=== PATIENT | female | born 1970 | race Caucasian/White ===

== ENCOUNTER → 2021-01-30 12:01 | Outpatient (CLI) | payer OTHER, MEDICAID, SELFPAY ==
--- NOTE | 2021-01-30 12:07 | DI.US.S_ITS ---
PROCEDURE: US PERIPH VENOUS LOW EXTREM LT INDICATIONS: HISTORY DVT; RE-EVALUATE TECHNIQUE: Real-time imaging, as well as color and pulse Doppler interrogation, were performed of the lower extremity deep veins from the inguinal ligament to the popliteal fossa. COMPARISON: None. FINDINGS: The common femoral, femoral and popliteal veins are normally compressible, and free of intraluminal thrombus. Color and pulse Doppler demonstrate normal phasic intraluminal flow. There is normal augmentation response to distal compression maneuver. IMPRESSION: Negative for deep venous thrombosis. Dictated by: Drew Stein M.D. on 01/30/2021 at 11:52 Approved by: Drew Stein M.D. on 01/30/2021 at 11:52
== END ==
PROVIDERS: PCP Nurse Practitioner Family; Referring Provider Nurse Practitioner Family; Visit Provider Nurse Practitioner Family
DX: I82.592 Chronic embolism and thrombosis of other specified deep vein of left lower extremity (principal)
CPT/HCPCS: 93971

== ENCOUNTER → 2021-03-11 10:37 | Outpatient (CLI) | payer OTHER, MEDICAID, SELFPAY ==
--- NOTE | 2021-03-11 10:39 | DI.US.S_ITS ---
PROCEDURE: US PELVIC COMPLETE INDICATIONS: POSTMENOPAUSAL BLEEDING TECHNIQUE: Real-time scanning was performed of the pelvic organs, with image documentation. Additional endovaginal scanning was necessary due to incomplete visualization of the adnexal and endometrial structures by transabdominal scanning. COMPARISON: None. FINDINGS: Uterus: Uterus is anteverted and normal in size at 4.1 x 2.9 x 7.5 cm. The endometrium measures 2.0 mm in combined thickness. There is a small right posterior intramural 1.1 cm maximal dimension fibroid and also a midline anterior intramural 9 mm maximal dimension thyroid. Ovaries: Not well seen due to bowel gas. Other: No pathologic free abdominal or pelvic fluid. IMPRESSION: 2 small intramural uterine fibroids, normal endometrial lining thickness. Nonvisualization of the ovaries due to bowel gas. Dictated by: Ladarius Esposito M.D. on 03/11/2021 at 12:13 Approved by: Ladarius Esposito M.D. on 03/11/2021 at 12:15
== END ==
PROVIDERS: PCP Family Medicine; Referring Provider Family Medicine; Visit Provider Family Medicine
DX: N95.0 Postmenopausal bleeding (principal); D25.1 Intramural leiomyoma of uterus
CPT/HCPCS: 76830; 76856

== ENCOUNTER → 2021-03-14 12:42 | Outpatient (CLI) | payer OTHER, MEDICAID, SELFPAY ==
[2021-03-14 13:30] LABS: Prothrombin Time 63.5 SECONDS (10.1-12.7)
[2021-03-14 13:44] LABS: INR 5.4 (0.9-1.3)
[2021-03-14 14:20] LABS: Free T3, Triiodothyronine Free 4.66 pg/mL (2.77-5.27); Free T4, Direct Thyroxine 1.52 ng/dL (0.78-2.19)
[2021-03-14 14:34] LABS: Thyroid Stimulating Hormone 1.33 uIU/mL (0.47-4.68)
== END ==
PROVIDERS: Registered Nurse; PCP Family Medicine; Referring Provider Family Medicine; Visit Provider Family Medicine
DX: Z86.39 Personal history of other endocrine, nutritional and metabolic disease (principal); Z86.718 Personal history of other venous thrombosis and embolism
CPT/HCPCS: 36415; 84439; 84443; 84481; 85610

== ENCOUNTER 2021-03-16 15:53 | Emergency (ER) | payer OTHER, MEDICAID, SELFPAY ==
[2021-03-16 16:00] VITALS: BP 144/89; PULSE 61; RESP 20; TEMP 36.3; O2SAT 98
--- NOTE | 2021-03-16 16:19 | ED_ITS ---
HPI - Recheck/Abnormal Lab/Rx General Chief Complaint: Recheck/Abnormal Lab/Rx Stated Complaint: needs INR checked Time Seen by Provider: 03/16/21 16:02 Source: patient Mode of arrival: Ambulatory Limitations: no limitations History of Present Illness HPI narrative: 50-year-old female smoker with history of lower extremity DVT after complex back surgery presents for a check of her INR. She has had no recent medication changes or dietary change but a routine INR check a few days ago was elevated over 5 and she was told to hold her dose yesterday and today and recheck an INR. She denies any headache or blurred vision, bleeding in her stool or urine and has no complications. She is otherwise well and free of complaint. MD complaint: abnormal lab Returns today for: called because of abnormal lab/test Symptoms since prior visit: no new symptoms Related Data Home Medications Medication Instructions Recorded Confirmed docusate sodium 250 mg capsule 250 mg PO DAILY 03/05/21 03/14/21 duloxetine 60 mg capsule,delayed 60 mg PO DAILY 03/05/21 03/14/21 release fluticasone propionate 50 1 spray INTRANASAL DAILY 03/05/21 03/14/21 mcg/actuation nasal spray,suspension furosemide 20 mg tablet 20 mg PO DAILY 03/05/21 03/14/21 sertraline 100 mg tablet 100 mg PO DAILY 03/05/21 03/14/21 warfarin 3 mg tablet 3 mg PO DAILY 03/05/21 03/14/21 Previous Rx's Medication Instructions Recorded metoprolol succinate 100 mg 100 mg PO DAILY #90 tab 03/06/21 tablet,extended release 24 hr trazodone 50 mg tablet 50 mg PO BEDTIME PRN #90 tab 03/11/21 hydrocodone 10 mg-acetaminophen 1 tab PO Q4-6H PRN #150 tab 03/15/21 325 mg tablet Allergies Allergy/AdvReac Type Severity Reaction Status Date / Time gabapentin [From NEURONTIN] Allergy Severe resp Unverified 03/05/21 11:45 distress meperidine [From DEMEROL] Allergy Severe resp Unverified 03/05/21 11:45 distress morphine [MORPHINE] Allergy Severe resp Unverified 03/05/21 11:45 distress adhesive [ADHESIVE] Allergy Intermediate rash Unverified 03/05/21 11:45 rivaroxaban [From XARELTO] Allergy Unknown arthritis, Unverified 03/05/21 11:45 bleeding in urine Review of Systems Constitutional Constitutional: Denies chills, Denies fatigue, Denies fever(s), Denies frequent falls, Denies lethargy and Denies weakness Eyes Eyes: Denies change in vision, Denies eye discharge, Denies irritation and Denies loss of vision ENT Ears, Nose, Mouth, and Throat: Denies change in voice, Denies dizziness, Denies neck pain, Denies sore throat and Denies throat swelling Cardiovascular Cardiovascular: Denies chest pain, Denies irregular heart rhythm, Denies lightheadedness, Denies palpitations, Denies dyspnea, Denies dyspnea on exertion and Denies orthopnea Respiratory Respiratory: Denies cough, Denies dyspnea, Denies dyspnea on exertion and Denies wheezing Gastrointestinal Gastrointestinal: Denies abdominal pain, Denies change in bowel habits, Denies diarrhea, Denies nausea and Denies vomiting Musculoskeletal Musculoskeletal: Denies neck pain and Denies numbness Integumentary/Breasts Skin/Breast: Denies pruritus, Denies erythema, Denies rash and Denies wounds Neurologic Neurologic: Denies behavioral changes, Denies confusion, Denies dizziness, Denies frequent falls, Denies loss of vision, Denies numbness and Denies weakness Psychiatric Psychiatric: Denies anxiety, Denies behavioral changes, Denies confusion, Denies depression, Denies homicidal ideation and Denies suicidal ideation Endocrine Endocrine: Denies fatigue, Denies flushing and Denies palpitations Hematologic/Lymphatic Hematologic/Lymphatic: Denies easy bruising Allergic/Immunologic Allergic/Immunologic: Denies urticaria, Denies throat swelling and Denies wheezing Patient History Medical History Back pain with history of spinal surgery History of colon polyps HTN (hypertension) Inguinal hernia recurrent unilateral Nocturia more than twice per night Postmenopausal bleeding Surgical History H/O hernia repair H/O knee surgery Hx of section Family History Father Hypertension Mother Diabetes mellitus Congestive heart failure Social History substance use type: marijuana Smoking Status: Current every day smoker Exam Narrative Exam Narrative: GEN: AOx3 and in mild distress EYES: Pupils are equal, round, and reactive to light and accommodation. Extraoccular muscles are intact bilaterally. There is no subconjunctival hemorrhage or exudate. CHEST: Lungs are clear to auscultation bilaterally and free of wheezes, rales, or rhonchi. Heart rate is regular rhythm, there are no murmurs, clicks, rubs, or gallops. There is no chest wall tenderness. ABD: Abdomen is soft and nontender. There is no guarding or rebound. Bowel sounds are normal in all 4 quadrants. There is no mass or organomegaly. EXT: Full painless ROM of all extremities with no loss of sensation or strength. SKIN: Warm, pink, and dry. No erythema or rash Initial Vital Signs Initial Vital Signs: Vital Signs Temperature 97.4 F L 03/16/21 16:00 Pulse Rate 61 03/16/21 16:00 Respiratory Rate 20 03/16/21 16:00 Blood Pressure 144/89 H 03/16/21 16:00 Pulse Oximetry 98 03/16/21 16:00 Course Orders Ordered: ED Orders 03/16/21 16:09 Prothrombin Time INR Stat Vital Signs Vital signs: Vital Signs - 8 hr 03/16/21 16:00 Temperature 97.4 F L Pulse Rate 61 Respiratory Rate 20 Blood Pressure 144/89 H Pulse Oximetry 98 [facility] - Recheck/Abnormal Lab/Rx Lab Data Labs: Lab Results 03/16/21 Range/Units 16:09 PT 51.0 H D (10.1-12.7) SECONDS INR 4.3 H (0.9-1.3) [facility] Narrative Medical decision making narrative: Patient with slightly elevated INR and no symptoms to suggest bleeding. Has trended down from above 5 to today's level 4.3. Discussed with patient to hold Coumadin today and tomorrow. She has follow-up arranged on Wednesday to establish with the [facility] and her new PCP. Return precautions given and questions answered to her apparent satisfaction Discharge Plan Departure Patient Disposition: Home Clinical Impression: Supratherapeutic INR Activity Restrictions/Additional Instructions: *You have been diagnosed with [slightly elevated INR, today your level is 4.3] *What to do: *Please hold your Coumadin today and tomorrow and arrange to get a repeat INR 3 your primary care provider *Return to Emergency Department if you should have any new, worsening or concerning symptoms, such as [fever greater than 101 F, shaking chills, blood in your stool, urine worsening pain, persistent vomiting or other bothersome symptoms] Prescriptions: No Action metoprolol succinate 100 mg tablet extended release 24 hr 100 mg PO DAILY Qty: 90 RF: 3 trazodone 50 mg tablet 50 mg PO BEDTIME PRN (Reason: insomnia) Qty: 90 RF: 1 hydrocodone-acetaminophen 10-325 mg tablet 1 tab PO Q4-6H PRN (Reason: pain) Qty: 150 RF: 0 warfarin 3 mg tablet 3 mg PO DAILY RF: 0 sertraline 100 mg tablet 100 mg PO DAILY RF: 0 duloxetine 60 mg capsule,delayed release(DR/EC) 60 mg PO DAILY RF: 0 fluticasone propionate 50 mcg/actuation spray,suspension 1 spray intranasal DAILY RF: 0 furosemide 20 mg tablet 20 mg PO DAILY RF: 0 docusate sodium [Stool Softener] 250 mg capsule 250 mg PO DAILY RF: 0 Referrals: Heriberto Mabry DO [Primary Care Provider] -
[2021-03-16 16:22] LABS: INR 4.3 (0.9-1.3)
== END 2021-03-16 16:30 | disposition home or self-care (01) ==
PROVIDERS: Emergency Provider Emergency Medicine; PCP Family Medicine
DX: R79.1 Abnormal coagulation profile (principal)
CPT/HCPCS: 85610; 99281; 99282

== ENCOUNTER → 2021-11-11 10:35 | Outpatient (CLI) | payer OTHER, MEDICAID, SELFPAY ==
[2021-11-11 12:30] LABS: INR 1.5 (0.9-1.3); Prothrombin Time 16.5 SECONDS (10.1-12.7)
== END ==
PROVIDERS: PCP Family Medicine; Referring Provider Family Medicine; Visit Provider Family Medicine
DX: Z79.01 Long term (current) use of anticoagulants (principal)
CPT/HCPCS: 36415; 85610

== ENCOUNTER → 2022-06-02 09:24 | Outpatient (CLI) | payer OTHER, MEDICAID, SELFPAY ==
[2022-06-02 10:24] LABS: INR 1.6 (0.9-1.3); Prothrombin Time 18.7 SECONDS (10.1-12.7)
== END ==
PROVIDERS: PCP Family Medicine; Referring Provider Family Medicine; Visit Provider Family Medicine
DX: Z79.01 Long term (current) use of anticoagulants (principal); Z86.718 Personal history of other venous thrombosis and embolism
CPT/HCPCS: 36415; 85610

== ENCOUNTER → 2022-06-25 10:18 | Outpatient (CLI) | payer OTHER, MEDICAID, SELFPAY ==
[2022-06-25 12:24] LABS: INR 1.6 (0.9-1.3); Prothrombin Time 18.1 SECONDS (10.1-12.7)
== END ==
PROVIDERS: PCP Family Medicine; Referring Provider Family Medicine; Visit Provider Family Medicine
DX: Z79.01 Long term (current) use of anticoagulants (principal); Z86.718 Personal history of other venous thrombosis and embolism
CPT/HCPCS: 36415; 85610

== ENCOUNTER → 2022-07-10 09:59 | Outpatient (CLI) | payer OTHER, MEDICAID, SELFPAY ==
[2022-07-10 12:06] LABS: INR 1.6 (0.9-1.3); Prothrombin Time 18.1 SECONDS (10.1-12.7)
== END ==
PROVIDERS: PCP Family Medicine; Referring Provider Family Medicine; Visit Provider Family Medicine
DX: Z79.01 Long term (current) use of anticoagulants (principal); Z86.718 Personal history of other venous thrombosis and embolism
CPT/HCPCS: 36415; 85610

== ENCOUNTER → 2022-08-04 09:03 | Outpatient (CLI) | payer OTHER, MEDICAID, SELFPAY ==
[2022-08-04 11:08] LABS: INR 2.3 (0.9-1.3); Prothrombin Time 26.2 SECONDS (10.1-12.7)
== END ==
PROVIDERS: PCP Family Medicine; Referring Provider Family Medicine; Visit Provider Family Medicine
DX: Z79.01 Long term (current) use of anticoagulants (principal); Z86.718 Personal history of other venous thrombosis and embolism
CPT/HCPCS: 36415; 85610

== ENCOUNTER → 2022-09-01 15:03 | Outpatient (CLI) | payer OTHER, MEDICAID, SELFPAY ==
[2022-09-01 15:37] LABS: INR 1.7 (0.9-1.3); Prothrombin Time 19.6 SECONDS (10.1-12.7)
== END ==
PROVIDERS: PCP Family Medicine; Referring Provider Family Medicine; Visit Provider Family Medicine
DX: Z79.01 Long term (current) use of anticoagulants (principal); I82.409 Acute embolism and thrombosis of unspecified deep veins of unspecified lower extremity
CPT/HCPCS: 36415; 85610

== ENCOUNTER → 2022-10-09 11:42 | Outpatient (CLI) | payer OTHER, MEDICAID, SELFPAY ==
[2022-10-09 13:02] LABS: INR 1.7 (0.9-1.3)
== END ==
PROVIDERS: PCP Family Medicine; Referring Provider Family Medicine; Visit Provider Family Medicine
DX: Z79.01 Long term (current) use of anticoagulants (principal)
CPT/HCPCS: 36415; 85610

== ENCOUNTER → 2022-10-13 11:44 | Outpatient (CLI) | payer OTHER, MEDICAID, SELFPAY ==
--- NOTE | 2022-10-13 11:44 | DI.RAD.S_ITS ---
PROCEDURE: XR KNEE RT 3V INDICATIONS: pain TECHNIQUE: 3 views of the knee were acquired. COMPARISON: [facility], CR, XR KNEE LT 3V, 10/13/2022, 11:47. FINDINGS: Bones: No fractures or dislocations. Moderate to severe tricompartmental osteoarthritis is seen most notably in medial femoral tibial compartment. No patellar subluxation. No suspicious bony lesions. Soft tissues: No joint effusion. No suspicious soft tissue calcifications. IMPRESSION: Moderate to severe tricompartmental osteoarthritis most notably in medial femoral tibial compartment. No fracture or dislocation. No significant joint effusion. Dictated by: Raffy Salas M.D. on 10/13/2022 at 12:44 Approved by: Raffy Salas M.D. on 10/13/2022 at 12:46
--- NOTE | 2022-10-13 11:44 | DI.RAD.S_ITS ---
PROCEDURE: XR KNEE LT 3V INDICATIONS: pain TECHNIQUE: 3 views of the knee were acquired. COMPARISON: None. FINDINGS: Bones: No fractures or dislocations. Moderate to severe tricompartmental osteoarthritis most notably in medial femoral tibial compartment. No suspicious bony lesions. Soft tissues: No joint effusion. No suspicious soft tissue calcifications. IMPRESSION: Moderate to severe tricompartmental osteoarthritis. No fracture or dislocation. No significant joint effusion. Dictated by: Raffy Salas M.D. on 10/13/2022 at 12:44 Approved by: Raffy Salas M.D. on 10/13/2022 at 12:44
== END ==
PROVIDERS: PCP Family Medicine; Referring Provider Family Medicine; Visit Provider Family Medicine
DX: M17.0 Bilateral primary osteoarthritis of knee (principal); M25.562 Pain in left knee; M25.561 Pain in right knee; G89.29 Other chronic pain
CPT/HCPCS: 73562

== ENCOUNTER → 2023-01-03 10:33 | Outpatient (CLI) | payer OTHER, MEDICAID, SELFPAY ==
--- NOTE | 2023-01-03 10:36 | DI.MRI.S_ITS ---
PROCEDURE: MR SHOULDER LT WO CON INDICATIONS: loss of fxn, pain TECHNIQUE: Noncontrast oblique coronal T2 fast spin echo with fat saturation, oblique sagittal T1 spin echo and T2 fast spin echo with fat saturation, axial T1 spin echo and T2 fast spin echo with fat saturation through the shoulder. COMPARISON: None. FINDINGS: Image quality: Excellent. Rotator cuff: Mild T2 signal elevation diffusely throughout the supraspinatus and infraspinatus tendons at the humeral insertion sites extending to the musculotendinous junction, indicating tendinopathy. Superimposed moderate grade intrasubstance and articular surface tearing of the posterior supraspinatus and anterior infraspinatus tendons, at the humeral insertion sites extending to the musculotendinous junction. There is a high-grade pinhole tear of the mid subscapularis tendon at the humeral insertion site. Teres minor is intact. No rotator cuff atrophy. Bones and bursae: No bone marrow contusions or fractures. Subchondral cyst within the posterior humeral head measuring 15 mm with moderate surrounding ill-defined T2 signal elevation, consistent with degenerative sequelae. Moderate acromioclavicular joint degeneration. The acromion demonstrates conventional anatomy, without an os acromiale. No pathologic subacromial-subdeltoid or subcoracoid bursal fluid is present. Capsule and soft tissues: Labrum demonstrates irregular high T2 signal intensity posteriorly with focal undercutting in the mid posterior labrum. The long head of the biceps tendon demonstrates normal location and morphology. The rotator interval appears normal, without fibrosis. The coracohumeral ligament is normal in thickness. IMPRESSION: 1. Supraspinatus and infraspinatus tendinopathy. 2. High-grade pinhole tear of the subscapularis tendon. 3. Moderate grade tearing of the supraspinatus and infraspinatus tendon. 4. Acromioclavicular joint osteoarthritis. 5. Glenoid labral tearing. 6. Degenerative subchondral cyst within the humeral head. Dictated by: Romel Garrett M.D. on 01/04/2023 at 9:00 Approved by: Romel Garrett M.D. on 01/04/2023 at 9:03
== END ==
PROVIDERS: PCP Family Medicine; Referring Provider Family Medicine; Visit Provider Family Medicine
DX: S46.012A Strain of muscle(s) and tendon(s) of the rotator cuff of left shoulder, initial encounter (principal); S43.492A Other sprain of left shoulder joint, initial encounter; M19.012 Primary osteoarthritis, left shoulder; M25.512 Pain in left shoulder; G89.11 Acute pain due to trauma; R29.898 Other symptoms and signs involving the musculoskeletal system
CPT/HCPCS: 73221

== ENCOUNTER → 2023-02-05 15:26 | Outpatient (CLI) | payer OTHER, MEDICAID, SELFPAY ==
[2023-02-05 19:11] LABS: INR 1.5 (0.9-1.3); Prothrombin Time 16.7 SECONDS (10.1-12.7)
== END ==
PROVIDERS: PCP Family Medicine; Referring Provider Family Medicine; Visit Provider Family Medicine
DX: Z79.01 Long term (current) use of anticoagulants (principal); Z86.718 Personal history of other venous thrombosis and embolism
CPT/HCPCS: 36415; 85610

== ENCOUNTER → 2023-02-19 11:39 | Outpatient (CLI) | payer OTHER, MEDICAID, SELFPAY ==
[2023-02-19 12:40] LABS: INR 2.3 (0.9-1.3); Prothrombin Time 27.1 SECONDS (10.1-12.7)
== END ==
PROVIDERS: PCP Family Medicine; Referring Provider Family Medicine; Visit Provider Family Medicine
DX: Z51.81 Encounter for therapeutic drug level monitoring (principal); Z79.01 Long term (current) use of anticoagulants; Z86.718 Personal history of other venous thrombosis and embolism
CPT/HCPCS: 36415; 85610

== ENCOUNTER → 2023-06-04 12:18 | Outpatient (CLI) | payer OTHER, MEDICAID, SELFPAY ==
[2023-06-04 13:35] LABS: Add Manual Diff / Slide Review NO; Basophils Absolute Auto 100 /uL (0-100); Basophils Percent Auto 1.4 % (0-2); Eosinophils Absolute Auto 300 /uL (0-450); Eosinophils Percent Auto 3.1 % (2-4); Hematocrit 44.7 % (36-46); Hemoglobin 15.2 g/dL (12.0-16.0); Lymphocytes Absolute Auto 2300 /uL (1100-4500); Lymphocytes Percent Auto 24.9 % (25-40); Mean Corpuscular HGB Conc 34.1 % (30-36); Mean Corpuscular Hemoglobin 29.5 PG (26-34); Mean Corpuscular Volume 86.3 fL (80-100); Monocytes Absolute Auto 600 /uL (0-900); Monocytes Percent Auto 6.1 % (3-14); Neutrophils Absolute Auto 6000 /uL (1500-7000); Neutrophils Percent Auto 64.5 % (50-75); Platelet Count 301 X10^3/uL (150-400); Red Blood Cell Count 5.17 X10^6/uL (4.0-5.2); Red Cell Distribution Width 13.7 % (11.6-14.8); White Blood Cell Count 9.3 X10^3/uL (4.5-11.0)
[2023-06-04 13:55] LABS: Alanine Aminotransferase 25 IU/L (<35); Albumin 4.2 g/dL (3.5-5.0); Albumin Globulin Ratio 1.6 (1.0-2.8); Alkaline Phosphatase 104 U/L (38-126); Aspartate Aminotransferase 23 IU/L (14-36); BUN Creatinine Ratio 15.2 (6-22); Bilirubin Total 0.4 mg/dL (0.2-1.3); Blood Urea Nitrogen 12 mg/dL (7-17); Calcium 9.7 mg/dL (8.4-10.2); Carbon Dioxide 25 mmol/L (22-32); Chloride 106 mmol/L (98-107); Cholesterol 199 mg/dL (140-199); Estimated Glomerular Filt Rate > 60 mL/min (>60); Globulin 2.6 g/dL (1.7-4.1); Glucose 133 mg/dL (70-100); HDL Cholesterol 49 mg/dL (40-60); HEMOLYSIS < 15 (0-50); LDL Cholesterol Calculated 98 mg/dL (<100); Potassium 4.3 mmol/L (3.4-5.1); Sodium 138 mmol/L (137-145); Total Protein 6.8 g/dL (6.3-8.2); Triglycerides 259 mg/dL (35-150)
[2023-06-04 13:56] LABS: INR 1.7 (0.9-1.3); Prothrombin Time 19.3 SECONDS (10.1-12.7)
[2023-06-04 14:26] LABS: TSH w/ Reflex to FT4 0.83 uIU/mL (0.47-4.68)
== END ==
PROVIDERS: PCP Family Medicine; Referring Provider Family Medicine; Visit Provider Family Medicine
DX: Z13.220 Encounter for screening for lipoid disorders (principal); Z86.39 Personal history of other endocrine, nutritional and metabolic disease; I82.409 Acute embolism and thrombosis of unspecified deep veins of unspecified lower extremity
CPT/HCPCS: 36415; 80053; 80061; 84443; 85025; 85610

== ENCOUNTER → 2023-06-11 11:05 | Outpatient (CLI) | payer OTHER, MEDICAID, SELFPAY ==
[2023-06-11 12:20] LABS: INR 1.9 (0.9-1.3); Prothrombin Time 21.5 SECONDS (10.1-12.7)
== END ==
PROVIDERS: PCP Family Medicine; Referring Provider Family Medicine; Visit Provider Family Medicine
DX: Z51.81 Encounter for therapeutic drug level monitoring (principal); Z79.01 Long term (current) use of anticoagulants; Z86.718 Personal history of other venous thrombosis and embolism
CPT/HCPCS: 36415; 85610

== ENCOUNTER → 2023-07-27 12:33 | Outpatient (CLI) | payer OTHER, MEDICAID, SELFPAY ==
[2023-07-27 13:33] LABS: Hemoglobin A1C% w Est Avg Glu 5.7 % (4.0-6.0)
[2023-07-27 14:41] LABS: INR 1.6 (0.9-1.3); Prothrombin Time 18.5 SECONDS (10.1-12.7)
== END ==
PROVIDERS: PCP Family Medicine; Referring Provider Family Medicine; Visit Provider Family Medicine
DX: R73.01 Impaired fasting glucose (principal); I82.409 Acute embolism and thrombosis of unspecified deep veins of unspecified lower extremity
CPT/HCPCS: 36415; 83036; 85610

== ENCOUNTER → 2023-12-15 12:45 | Outpatient (CLI) | payer OTHER, MEDICAID, SELFPAY ==
[2023-12-15 13:13] LABS: Add Manual Diff / Slide Review NO; Basophils Absolute Auto 100 /uL (0-100); Eosinophils Absolute Auto 300 /uL (0-450); Eosinophils Percent Auto 3.2 % (2-4); Hematocrit 41.5 % (36-46); Hemoglobin 13.8 g/dL (12.0-16.0); Lymphocytes Absolute Auto 2300 /uL (1100-4500); Lymphocytes Percent Auto 27.2 % (25-40); Mean Corpuscular HGB Conc 33.2 % (30-36); Mean Corpuscular Hemoglobin 28.7 PG (26-34); Mean Corpuscular Volume 86.6 fL (80-100); Monocytes Absolute Auto 600 /uL (0-900); Neutrophils Absolute Auto 5300 /uL (1500-7000); Neutrophils Percent Auto 61.6 % (50-75); Platelet Count 316 X10^3/uL (150-400); Red Blood Cell Count 4.79 X10^6/uL (4.0-5.2); Red Cell Distribution Width 14.2 % (11.6-14.8); White Blood Cell Count 8.6 X10^3/uL (4.5-11.0)
[2023-12-15 13:32] LABS: Alanine Aminotransferase 23 IU/L (<35); Albumin 3.8 g/dL (3.5-5.0); Albumin Globulin Ratio 1.4 (1.0-2.8); Alkaline Phosphatase 91 U/L (38-126); Aspartate Aminotransferase 25 IU/L (14-36); BUN Creatinine Ratio 17.8 (6-22); Bilirubin Total 0.5 mg/dL (0.2-1.3); Blood Urea Nitrogen 13 mg/dL (7-17); Calcium 9.3 mg/dL (8.4-10.2); Carbon Dioxide 28 mmol/L (22-32); Chloride 110 mmol/L (98-107); Cholesterol 185 mg/dL (140-199); Estimated Glomerular Filt Rate > 60 mL/min (>60); Globulin 2.8 g/dL (1.7-4.1); Glucose 133 mg/dL (70-100); HDL Cholesterol 45 mg/dL (40-60); HEMOLYSIS < 15 (0-50); LDL Cholesterol Calculated 112 mg/dL (<100); Potassium 4.3 mmol/L (3.4-5.1); Sodium 141 mmol/L (137-145); Total Protein 6.6 g/dL (6.3-8.2); Triglycerides 141 mg/dL (35-150)
[2023-12-15 13:41] LABS: Rheumatoid Factor < 8.6 IU/mL (<12.0)
[2023-12-15 13:47] LABS: Hemoglobin A1C% w Est Avg Glu 5.7 % (4.0-6.0)
[2023-12-15 13:58] LABS: TSH w/ Reflex to FT4 1.95 uIU/mL (0.47-4.68)
[2023-12-18 22:07] LABS: CCP Antibodies IgG/IgA 6 units (0-19)
== END ==
LOC: LAB 12:46
PROVIDERS: PCP Family Medicine; Referring Provider Family Medicine; Visit Provider Family Medicine
DX: I10 Essential (primary) hypertension (principal); Z68.42 Body mass index [BMI] 45.0-49.9, adult; R73.01 Impaired fasting glucose; M79.641 Pain in right hand; M79.642 Pain in left hand; M79.89 Other specified soft tissue disorders
CPT/HCPCS: 36415; 80053; 80061; 83036; 84443; 85025; 86200; 86430

== ENCOUNTER → 2024-02-24 12:11 | Outpatient (CLI) | payer OTHER, MEDICAID, SELFPAY ==
[2024-02-24 13:07] LABS: INR 1.9 (0.9-1.3); Prothrombin Time 22.5 SECONDS (9.4-12.5)
== END ==
PROVIDERS: PCP Family Medicine; Referring Provider Family Medicine; Visit Provider Family Medicine
DX: Z51.81 Encounter for therapeutic drug level monitoring (principal); Z79.01 Long term (current) use of anticoagulants; Z86.718 Personal history of other venous thrombosis and embolism
CPT/HCPCS: 36415; 85610

== ENCOUNTER 2024-03-21 20:06 | Emergency (ER) | payer OTHER, MEDICAID, SELFPAY ==
[2024-03-21] VITALS (11 sets, daily range): BP systolic 177–211; BP diastolic 86–109; PULSE 48–59; RESP 14–29; TEMP 36.8; O2SAT 96–99; BMI 44.8
--- NOTE | 2024-03-21 22:03 | ED_ITS ---
HPI - General Adult General Chief complaint: Hypertension Stated complaint: high blood pressure Time Seen by Provider: 03/21/24 20:31 Source: patient Mode of arrival: Ambulatory History of Present Illness HPI narrative: 53-year-old woman with a history of chronic back pain post spinal fusion, hypothyroidism post radiation, prior DVT currently anticoagulated, prior stroke, anxiety, depression, PTSD and a prior diagnosis of hypertension. Patient was seen by her primary care doctor today for dry needling for chronic neck pain. Was noted to have elevated blood pressures that time had come down slightly. Plan was to observe and she has not upcoming appointment to discuss in the near future. Initial presumption was that the elevated blood pressure was related to pain. Patient went home but when blood pressures remained elevated her provider suggested that she come to the ER for further evaluation. She is not having headache, chest pain, dyspnea. The dry needling did seem to help with the neck pain in the bit of a headache she had earlier. Blood pressures are still elevated at this time. She has not complaining of palpitations. Related Data Previous Rx's Medication Instructions Recorded Disabled Parking Permit #1 ea 06/10/22 alprazolam 1 mg tablet 1 mg PO .COMPLEX PRN anxiety #2 12/10/22 tabs losartan 50 mg tablet See Rx Instructions .Route 01/06/23 .COMPLEX #180 tabs psyllium husk (with sugar) 3.4 2 tsp PO ONCE #1,368 grams 08/04/23 gram/12 gram oral powder (Metamucil (with sugar)) trazodone 150 mg tablet 150 mg PO ONCE PM PRN for insomnia 10/27/23 #90 tabs fluticasone propionate 50 1 spray intranasal DAILY #16 grams 11/04/23 mcg/actuation nasal spray,suspension warfarin 3 mg tablet See Rx Instructions PO .COMPLEX 11/25/23 #420 tabs varenicline 0.5 mg (11)-1 mg (42) See Rx Instructions PO PER PKG DIR 01/04/24 tablets in a dose pack (Chantix #53 ea Starting Month Box) nystatin 100,000 unit/gram topical 1 applic topical BID #30 grams 01/06/24 cream sertraline 100 mg tablet 100 mg PO DAILY #90 tabs 02/15/24 duloxetine 60 mg capsule,delayed See Rx Instructions .Route 05/15/24 release .COMPLEX #180 caps furosemide 40 mg tablet See Rx Instructions .Route 02/16/24 .COMPLEX #90 tabs metoprolol succinate 100 mg See Rx Instructions .Route 02/17/24 tablet,extended release 24 hr .COMPLEX #180 tabs hydrocodone 10 mg-acetaminophen 1 tab PO Q4-6H PRN pain #150 tabs 03/01/24 325 mg tablet lidocaine 5 % topical patch 1 patch topical DAILY #30 caps 03/14/24 tramadol 50 mg tablet See Rx Instructions .Route 03/14/24 .COMPLEX #60 tabs losartan 50 mg tablet 50 mg PO BID #60 tabs 03/22/24 Allergies Allergy/AdvReac Type Severity Reaction Status Date / Time gabapentin [From NEURONTIN] Allergy Severe resp Verified 03/21/24 20:21 distress meperidine [From DEMEROL] Allergy Severe resp Verified 03/21/24 20:21 distress morphine [MORPHINE] Allergy Severe resp Verified 03/21/24 20:21 distress adhesive [ADHESIVE] Allergy Intermediate rash Verified 03/21/24 20:21 lisinopril Allergy Intermediate Rash Verified 03/21/24 20:21 rivaroxaban [From XARELTO] Allergy Unknown arthritis, Verified 03/21/24 20:21 bleeding in urine Review of Systems Review of Systems Narrative: Pertinent positive and negative findings as per HPI Patient History Medical History Bilateral hand swelling Bilateral hand pain Elevated fasting glucose Chronic right shoulder pain Subchondral bone cyst Limited mobility Left arm weakness Left anterior shoulder pain Chronic left shoulder pain Therapeutic opioid induced constipation Acute pain of left knee Mobility impaired Anticoagulation monitoring, INR range 2-3 Skin abrasion Shingles Acute low back pain due to trauma Acute neck pain Weight loss counseling, encounter for Cranial somatic dysfunction Cervical somatic dysfunction Chronic neck pain Neck stiffness Chronic tension-type headache, intractable Cervical cancer screening Insomnia due to medical condition Depression Sacral region somatic dysfunction Pelvic somatic dysfunction Lumbar region somatic dysfunction Thoracic region somatic dysfunction BMI 45.0-49.9, adult Chronic pain of both knees Ganglion cyst of volar aspect of left wrist Warfarin anticoagulation HTN (hypertension) Inguinal hernia recurrent unilateral Postmenopausal bleeding Nocturia more than twice per night History of colon polyps Back pain with history of spinal surgery Surgical History H/O knee surgery H/O hernia repair Hx of section Family History Father Hypertension Mother Diabetes mellitus Congestive heart failure Stroke Hypertension Social History Smoking Status: Current every day smoker substance use type: marijuana Smoking Status: Current every day smoker tobacco type: cigarettes alcohol intake frequency: holidays/special occasions only Substance Use Type: marijuana Exam Initial Vital Signs Initial Vital Signs: Vital Signs Temperature 98.3 F 03/21/24 20:11 Pulse Rate 59 L 03/21/24 20:11 Respiratory Rate 20 03/21/24 20:11 Blood Pressure 211/109 H 03/21/24 20:11 Pulse Oximetry 98 03/21/24 20:11 Oxygen Delivery Method Room Air 03/21/24 20:11 General: Healthy appearing, BMI of 45, appears fatigued but in no acute distress. Able to give a complete and coherent history. Well-nourished well- developed HEENT: Moist mucous membranes, normal sclera with reactive pupils, Respiratory: Lungs are clear to auscultation, no wheezing no rales no rhonchi. Full and symmetrical air movement Cardiac: Regular rate and rhythm no murmurs no bruits Abdomen: Soft, nontender, good bowel tones, no flank pain Skin: Warm and dry, no rashes Neurologic: Grossly neurologically intact with no obvious asymmetries or abnormalities Extremities: No trauma, well perfused Psych: Cooperative, appropriate insight and affect Course Orders Ordered: ED Orders 03/21/24 20:19 Consult to GROUP PROGRAM MANAGER - Seam Hammerer Stat 03/21/24 23:20 XR chest 1V Stat Complete Blood Count AUTO DIFF Stat Comprehensive Metabolic Panel Stat NT-proBNP (BNP-Adult 18+) Stat Troponin I Stat EKG-12 Lead Stat Discontinued Medications Hydrocodone Bitart/Acetaminophen (Hydrocodone/Acet 5/325 Tablet) 2 tab PO NOW ONE Stop: 03/21/24 22:28 Last Admin: 03/21/24 22:46 Dose: 2 tab Losartan Potassium (Losartan 50 Mg Tablet) 100 mg PO NOW ONE Stop: 03/21/24 22:28 Last Admin: 03/21/24 22:46 Dose: 100 mg Metoprolol Succinate (Metoprolol Er 50 Mg Tablet) 100 mg PO NOW ONE Stop: 03/21/24 22:28 Last Admin: 03/21/24 22:45 Dose: 100 mg Vital Signs Vital signs: Vital Signs - 8 hr 03/21/24 20:11 03/21/24 21:22 03/21/24 21:30 Temperature 98.3 F Pulse Rate 59 L 52 L 51 L Respiratory Rate 20 22 27 H Blood Pressure 211/109 H Pulse Oximetry 98 96 97 Oxygen Delivery Method Room Air 03/21/24 21:30 03/21/24 21:45 03/21/24 21:45 Temperature Pulse Rate 51 L Respiratory Rate 14 Blood Pressure 183/88 H 198/95 H Pulse Oximetry 99 Oxygen Delivery Method 03/21/24 22:00 03/21/24 22:07 03/21/24 22:07 Temperature Pulse Rate 53 L 51 L Respiratory Rate 27 H 21 Blood Pressure 192/100 H Pulse Oximetry 98 97 Oxygen Delivery Method 03/21/24 22:15 03/21/24 22:15 03/21/24 22:30 Temperature Pulse Rate 51 L Respiratory Rate 24 Blood Pressure 191/102 H 177/97 H Pulse Oximetry 98 Oxygen Delivery Method 03/21/24 22:30 03/21/24 22:45 03/21/24 22:45 Temperature Pulse Rate 50 L 51 L 53 L Respiratory Rate 29 H 18 Blood Pressure 179/86 H Pulse Oximetry 98 98 Oxygen Delivery Method 03/21/24 22:45 03/21/24 22:46 03/21/24 23:00 Temperature Pulse Rate 51 L 48 L Respiratory Rate 27 H Blood Pressure 179/86 H 179/86 H Pulse Oximetry 99 Oxygen Delivery Method 03/21/24 23:00 Temperature Pulse Rate Respiratory Rate Blood Pressure 187/88 H Pulse Oximetry Oxygen Delivery Method Medical Decision Making Lab Data 03/21/24 20:30 03/21/24 20:30 Labs: Lab Results 03/21/24 Range/Units 20:30 WBC 12.1 H (4.5-11.0) X10^3/uL RBC 5.44 H (4.0-5.2) X10^6/uL Hgb 15.8 (12.0-16.0) g/dL Hct 46.7 H (36-46) % MCV 85.9 (80-100) fL MCH 29.0 (26-34) PG MCHC 33.8 (30-36) % RDW 14.4 (11.6-14.8) % Plt Count 387 (150-400) X10^3/uL Neut % (Auto) 61.3 (50-75) % Lymph % (Auto) 29.4 (25-40) % [place] % (Auto) 6.7 (3-14) % Eos % (Auto) 1.3 L (2-4) % Baso % (Auto) 1.3 (0-2) % Neut # (Auto) 7400 H (2347-7296) /uL Lymph # (Auto) 3600 (8108-0961) /uL [place] # (Auto) 800 (0-900) /uL Eos # (Auto) 200 (0-450) /uL Baso # (Auto) 200 H (0-100) /uL Sodium 141 (137-145) mmol/L Potassium 4.2 (3.4-5.1) mmol/L Chloride 109 H (98-107) mmol/L Carbon Dioxide 27 (22-32) mmol/L BUN 13 (7-17) mg/dL Creatinine 0.81 (0.52-1.04) mg/dL Estimated GFR > 60 (>60) mL/min BUN/Creatinine Ratio 16.0 (6-22) Glucose 94 (70-100) mg/dL Calcium 9.6 (8.4-10.2) mg/dL Total Bilirubin 0.8 (0.2-1.3) mg/dL AST 25 (14-36) IU/L ALT 21 (<35) IU/L Alkaline Phosphatase 89 (38-126) U/L Troponin I < 0.012 (0.01-0.034) ng/mL NT-Pro-B Natriuret Pep 290 H (<125) pg/mL Total Protein 8.3 H (6.3-8.2) g/dL Albumin 4.7 (3.5-5.0) g/dL Globulin 3.6 (1.7-4.1) g/dL Albumin/Globulin Ratio 1.3 (1.0-2.8) MDM Narrative Medical decision making narrative: CC: Consistently elevated blood pressure throughout the day Complicating co-morbidities: BMI of 45, depression, hypertension, anticoagulated, chronic pain issues Data collected from: patient Medical records reviewed: Differential considered: Exam documented above, pertinent findings include: Lab Test results independently reviewed as above. Pertinent findings: CBC shows mild leukocytosis at 12.1 without left shift. No significant anemia Chemistries are reassuring, normal renal function ProBNP is minimally elevated only Troponin is undetectable Independently reviewed EKG: EKG shows sinus bradycardia at a rate of 49. Normal intervals and normal axis. No acute ischemic changes Imaging studies independently reviewed: Chest x-ray is fairly benign with no acute ischemic changes. Treatments: She is given her nighttime dose of metoprolol succinate 100 mg. She is also given an additional dose of losartan 50 mg, states she typically takes this in the morning. Re-evaluations: Blood pressure is still in the 200/90 range. She is otherwise asymptomatic and I believe discharge home is safe at this time Discussion: 53-year-old woman with significant hypertension has been elevated all day. Was initially seen in primary care doctor's office blood pressure did not declined. He recommended further evaluation evaluation does not show additional abnormalities. She was given an extra dose of losartan. At this point I believe she is safe for home discharge to manage blood pressure in a safe and slowly declining way. We will have her continue her metoprolol succinate she states she takes it 100 mg b.i.d., we will increase her losartan from 50 mg in the morning to 50 mg b.i.d.. Explained reasons to return to the emergency department including very high blood pressures and symptoms of stroke or heart attack or other end-organ problems. She understands and is safe for discharge home Discharge Plan Departure Patient Disposition: Home Clinical Impression: Hypertension Qualifiers: Hypertension type: primary hypertension Qualified Code(s): I10 - Essential (primary) hypertension Instructions: DI for High Blood Pressure Activity Restrictions/Additional Instructions: Thank you for coming in today. It sounds like it has been a very long day for you Your blood work, chest x-ray and EKG are fairly reassuring. You do not need to be in the hospital and there was no evidence of acute heart attack this evening. Your blood pressure is still significantly elevated and I am going to suggest that you add an extra dose of losartan in the evening. Currently you take 50 mg in the morning, going to have you increase this to 50 mg morning and evening continuing with your metoprolol morning and evening doses. Please keep track of your blood pressures, best time to take them is approximately 2 hours after your medications. The only reason to return to the emergency department with blood pressure concerns is because your blood pressure is high AND you are also having shortness of breath, chest pain, headaches, vision changes or other acute findings. If you find that you are getting worse or develop any new symptoms, please feel free to return to the emergency department for further evaluation. Prescriptions: New losartan 50 mg tablet 50 mg PO BID Qty: 60 1RF No Action losartan 50 mg tablet See Rx Instructions .ROUTE .COMPLEX Qty: 180 3RF Dose Instruction: TAKE 1 TABLET BY MOUTH TWICE A DAY Rx Instructions: TAKE 1 TABLET BY MOUTH TWICE A DAY Metamucil (with sugar) 3.4 gram/12 gram powder 2 tsp PO ONCE Qty: 1368 12RF trazodone 150 mg tablet 150 mg PO ONCE PM PRN (Reason: for insomnia) Qty: 90 3RF warfarin 3 mg tablet See Rx Instructions PO .COMPLEX Qty: 420 2RF Rx Instructions: Take 9mg Wednesday, Wednesday and Wednesday and 6mg all other days. nystatin 100,000 unit/gram cream 1 applic topical BID Qty: 30 2RF sertraline 100 mg tablet 100 mg PO DAILY Qty: 90 3RF duloxetine 60 mg capsule,delayed release(DR/EC) See Rx Instructions .ROUTE .COMPLEX Qty: 180 0RF Dose Instruction: TAKE 1 CAPSULE BY MOUTH TWICE DAILY Rx Instructions: TAKE 1 CAPSULE BY MOUTH TWICE DAILY furosemide 40 mg tablet See Rx Instructions .ROUTE .COMPLEX Qty: 90 0RF Dose Instruction: TAKE 1 TABLET ORALLY DAILY Rx Instructions: TAKE 1 TABLET ORALLY DAILY metoprolol succinate 100 mg tablet extended release 24 hr See Rx Instructions .ROUTE .COMPLEX Qty: 180 3RF Dose Instruction: TAKE 1 TABLET ORALLY TWICE A DAY Rx Instructions: TAKE 1 TABLET ORALLY TWICE A DAY hydrocodone-acetaminophen 10-325 mg tablet 1 tab PO Q4-6H PRN (Reason: pain) Qty: 150 0RF tramadol 50 mg tablet See Rx Instructions .ROUTE .COMPLEX Qty: 60 0RF Rx Instructions: Take 1 tablet by mouth twice daily as needed for pain; lidocaine 5 % adhesive patch,medicated 1 patch topical DAILY Qty: 30 4RF (DME) Disabled Parking Permit See Rx Instructions .Route .MEDSUPPLY Qty: 1 0RF Rx Instructions: Disabled Parking Permit-Permanent alprazolam 1 mg tablet 1 mg PO .COMPLEX PRN (Reason: anxiety) Qty: 2 0RF Rx Instructions: 1 mg orally for claustrophia PRN; fluticasone propionate 50 mcg/actuation spray,suspension 1 spray intranasal DAILY Qty: 16 11RF Rx Instructions: administer into each nostril varenicline [Chantix Starting Month Box] 0.5 mg (11)- 1 mg (42) tablets,dose pack See Rx Instructions PO PER PKG DIR Qty: 53 0RF Rx Instructions: PO PER PKG DIR Referrals: Juan Mabry DO [Primary Care Provider] - Stand Alone Forms: Patient Portal/API
[2024-03-21] MEDS: METOPROLOL ER 50 MG TABLET 100 MG PO (22:45)
[2024-03-21] MEDS: LOSARTAN 50 MG TABLET 100 MG PO (22:46)
[2024-03-21] MEDS: HYDROCODONE/ACET 5/325 TABLET 2 TAB PO (22:46)
--- NOTE | 2024-03-21 23:20 | DI.RAD.S_ITS ---
PROCEDURE: XR CHEST 1V INDICATIONS: hypertension TECHNIQUE: One view of the chest was acquired. COMPARISON: None. FINDINGS: Surgical changes and devices: Partially visualized thoracolumbar spinal fusion hardware. Lungs and pleura: Lungs are clear. No pleural effusions or pneumothorax. Mediastinum: Mediastinal contours appear normal. Heart size is normal. Bones and chest wall: No suspicious bony lesions. Overlying soft tissues appear unremarkable. IMPRESSION: No acute cardiopulmonary abnormality is seen. Dictated by: Ori Low M.D. on 03/22/2024 at 1:29 Approved by: Ori Low M.D. on 03/22/2024 at 1:29
--- NOTE | 2024-03-21 23:30 | EKG_ITS ---
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
[2024-03-21 23:42] LABS: Add Manual Diff / Slide Review NO; Basophils Absolute Auto 200 /uL (0-100); Basophils Percent Auto 1.3 % (0-2); Eosinophils Absolute Auto 200 /uL (0-450); Eosinophils Percent Auto 1.3 % (2-4); Hematocrit 46.7 % (36-46); Hemoglobin 15.8 g/dL (12.0-16.0); Lymphocytes Absolute Auto 3600 /uL (1100-4500); Lymphocytes Percent Auto 29.4 % (25-40); Mean Corpuscular HGB Conc 33.8 % (30-36); Mean Corpuscular Volume 85.9 fL (80-100); Monocytes Absolute Auto 800 /uL (0-900); Monocytes Percent Auto 6.7 % (3-14); Neutrophils Absolute Auto 7400 /uL (1500-7000); Neutrophils Percent Auto 61.3 % (50-75); Platelet Count 387 X10^3/uL (150-400); Red Blood Cell Count 5.44 X10^6/uL (4.0-5.2); Red Cell Distribution Width 14.4 % (11.6-14.8); White Blood Cell Count 12.1 X10^3/uL (4.5-11.0)
[2024-03-21 23:45] LABS: Alanine Aminotransferase 21 IU/L (<35); Albumin 4.7 g/dL (3.5-5.0); Albumin Globulin Ratio 1.3 (1.0-2.8); Alkaline Phosphatase 89 U/L (38-126); Aspartate Aminotransferase 25 IU/L (14-36); Bilirubin Total 0.8 mg/dL (0.2-1.3); Blood Urea Nitrogen 13 mg/dL (7-17); Calcium 9.6 mg/dL (8.4-10.2); Carbon Dioxide 27 mmol/L (22-32); Chloride 109 mmol/L (98-107); Estimated Glomerular Filt Rate > 60 mL/min (>60); Globulin 3.6 g/dL (1.7-4.1); Glucose 94 mg/dL (70-100); HEMOLYSIS < 15 (0-50); Potassium 4.2 mmol/L (3.4-5.1); Sodium 141 mmol/L (137-145); Total Protein 8.3 g/dL (6.3-8.2)
[2024-03-21 23:57] LABS: NT-proBNP (BNP-Adult 18+) 290 pg/mL (<125); Troponin I < 0.012 ng/mL (0.01-0.034)
== END 2024-03-22 01:36 | disposition home or self-care (01) ==
PROVIDERS: Emergency Provider Emergency Medicine; PCP Family Medicine
DX: I10 Essential (primary) hypertension (principal); F17.200 Nicotine dependence, unspecified, uncomplicated
CPT/HCPCS: 71045; 80053; 83880; 84484; 85025; 93005; 99283; 99284

== ENCOUNTER → 2024-05-19 11:10 | Outpatient (CLI) | payer OTHER, MEDICAID, SELFPAY ==
--- NOTE | 2024-05-19 11:28 | EKG_ITS ---
[address] [address] Test Date: 2024-05-19 Pat Name: Yael Dominguez Department: [facility] Room: Gender: Female Director Of Customer Acquisition: HARRIETT : 1970 Requested By: Order Number: [id number] Reading MD: Andrew Trcay MD Measurements Intervals [place] Rate: 55 P: 48 AL: 162 QRS: 54 QRSD: 96 T: 37 QT: 438 QTc: 419 Interpretive Statements Sinus bradycardia Possible Left atrial enlargement Electronically Signed On 05-19-2024 14:30:01 PDT by Andrew Tracy MD
== END ==
LOC: LAB 11:11 → RESP 11:11
PROVIDERS: PCP Family Medicine; Referring Provider Family Medicine; Visit Provider Family Medicine
DX: Z01.810 Encounter for preprocedural cardiovascular examination (principal)
CPT/HCPCS: 93005; 93010

== ENCOUNTER → 2024-05-25 15:45 | Outpatient (CLI) | payer OTHER, MEDICAID, SELFPAY ==
[2024-05-25 17:19] LABS: INR 1.7 (0.9-1.3)
[2024-05-25 17:37] LABS: C-Reactive Protein Quant 0.6 mg/dL (<1.0)
[2024-05-25 17:41] LABS: Erythrocyte Sedimentation Rate 12 MM/HR (0-20); Rheumatoid Factor < 8.6 IU/mL (<12.0)
== END ==
PROVIDERS: PCP Family Medicine; Referring Provider Orthopaedic Surgery; Visit Provider Orthopaedic Surgery
DX: M06.4 Inflammatory polyarthropathy (principal); Z51.81 Encounter for therapeutic drug level monitoring; Z79.01 Long term (current) use of anticoagulants; M79.89 Other specified soft tissue disorders; M79.641 Pain in right hand; M79.642 Pain in left hand; M25.511 Pain in right shoulder; G89.29 Other chronic pain; M25.512 Pain in left shoulder; Z74.09 Other reduced mobility; I82.409 Acute embolism and thrombosis of unspecified deep veins of unspecified lower extremity
CPT/HCPCS: 36415; 84550; 85610; 85651; 86140; 86200; 86430

== ENCOUNTER 2024-07-27 08:37 | Day surgery (SDC) | payer OTHER, MEDICAID, SELFPAY ==
[2024-07-27 09:04] VITALS: BP 187/75; PULSE 56; RESP 18; TEMP 36.5; O2SAT 98
--- NOTE | 2024-07-27 09:41 | P.HP_ITS ---
History of Present Illness History of Present Illness Date Patient Seen: 07/27/24 Time Patient Seen: 09:41 Chief complaint: Screening Colonoscopy Narrative: Yael is a 54-year-old woman who is here for a screening colonoscopy. Her last colonoscopy was approximately 10 years ago and she believes she has never had polyps removed. No family history of colon cancer. [facility] Medical History (Updated 07/27/24 @ 09:42 by Espinoza Joel MD) Traumatic ecchymosis of abdominal wall Chronic pain after traumatic injury Bilateral hand swelling Bilateral hand pain Elevated fasting glucose Chronic right shoulder pain Subchondral bone cyst Limited mobility Left arm weakness Left anterior shoulder pain Chronic left shoulder pain Therapeutic opioid induced constipation Acute pain of left knee Mobility impaired Anticoagulation monitoring, INR range 2-3 Skin abrasion Shingles Acute low back pain due to trauma Acute neck pain Weight loss counseling, encounter for Cranial somatic dysfunction Cervical somatic dysfunction Chronic neck pain Neck stiffness Chronic tension-type headache, intractable Cervical cancer screening Insomnia due to medical condition Depression Sacral region somatic dysfunction Pelvic somatic dysfunction Lumbar region somatic dysfunction Thoracic region somatic dysfunction BMI 45.0-49.9, adult Chronic pain of both knees Ganglion cyst of volar aspect of left wrist Warfarin anticoagulation HTN (hypertension) Inguinal hernia recurrent unilateral Postmenopausal bleeding Nocturia more than twice per night History of colon polyps Back pain with history of spinal surgery Surgical History H/O knee surgery H/O hernia repair Hx of section Family History Father Hypertension Mother Diabetes mellitus Congestive heart failure Stroke Hypertension Social History Smoking Status: Current every day smoker substance use type: marijuana Meds Home Medications and Allergies Home Medications Medication Instructions Recorded Confirmed Type Disabled Parking Permit #1 ea 06/10/22 07/12/24 Rx alprazolam 1 mg tablet 1 mg PO .COMPLEX PRN anxiety #2 12/10/22 07/12/24 Rx tabs trazodone 150 mg tablet 150 mg PO ONCE PM PRN for insomnia 10/27/23 07/12/24 Rx #90 tabs fluticasone propionate 50 1 spray intranasal DAILY #16 grams 11/04/23 07/12/24 Rx mcg/actuation nasal spray,suspension warfarin 3 mg tablet See Rx Instructions PO .COMPLEX 11/25/23 07/27/24 Rx #420 tabs varenicline 0.5 mg (11)-1 mg (42) See Rx Instructions PO PER PKG DIR 01/04/24 07/12/24 Rx tablets in a dose pack (Chantix #53 ea Starting Month Box) sertraline 100 mg tablet 100 mg PO DAILY #90 tabs 02/15/24 07/12/24 Rx metoprolol succinate 100 mg See Rx Instructions .Route 02/17/24 07/27/24 Rx tablet,extended release 24 hr .COMPLEX #180 tabs psyllium husk (with sugar) 3.4 2 tsp PO ONCE #1,368 grams 04/20/24 07/12/24 Rx gram/12 gram oral powder (Metamucil (with sugar)) furosemide 80 mg tablet 80 mg PO DAILY #90 tabs 05/16/24 07/12/24 Rx duloxetine 60 mg capsule,delayed See Rx Instructions .Route 05/23/24 07/12/24 Rx release .COMPLEX #180 caps nystatin 100,000 unit/gram topical 1 applic topical BID #30 grams 06/09/24 07/12/24 Rx cream peg 3350-electrolytes 236 240 ml PO Q10M #4,000 mL 06/20/24 07/12/24 Rx gram-22.74 gram-6.74 gram-5.86 gram solution (Golytely) amoxicillin 875 mg-potassium 1 tab PO BID #14 tabs 06/22/24 07/12/24 Rx clavulanate 125 mg tablet losartan 50 mg tablet 50 mg PO BID #180 tabs 06/27/24 07/12/24 Rx hydrocodone 10 mg-acetaminophen 1 tab PO Q4-6H PRN pain #180 tabs 07/06/24 07/12/24 Rx 325 mg tablet lidocaine 5 % topical patch 1 patch topical DAILY #30 caps 07/20/24 Rx tramadol 50 mg tablet See Rx Instructions .Route 07/20/24 Rx .COMPLEX #60 tabs enoxaparin 120 mg/0.8 mL 120 mg (0.8 mL) SUBCUT Q12H #8 mL 07/21/24 Rx subcutaneous syringe (Lovenox) Allergies Allergy/AdvReac Type Severity Reaction Status Date / Time gabapentin [From NEURONTIN] Allergy Severe resp Verified 07/27/24 09:00 distress meperidine [From DEMEROL] Allergy Severe resp Verified 07/27/24 09:00 distress morphine [MORPHINE] Allergy Severe resp Verified 07/27/24 09:00 distress adhesive [ADHESIVE] Allergy Intermediate rash Verified 07/27/24 09:00 lisinopril Allergy Intermediate Rash Verified 07/27/24 09:00 rivaroxaban [From XARELTO] Allergy Unknown arthritis, Verified 07/27/24 09:00 bleeding in urine Exam Vital Signs (past 8 hours): - 07/27/24 09:04 Temperature 97.7 F Pulse Rate 56 L Respiratory Rate 18 Blood Pressure 187/75 H Pulse Oximetry 98 Oxygen Delivery Method Room Air Oxygen Delivery Method Room Air Const General: No acute distress Resp Effort & Inspection: normal respiratory effort Assessment & Plan Assessment and plan (1) Colon cancer screening: Status: Acute Plan Colonoscopy Time-Based Coding :: [TOTAL MINUTES] spent with patient and on the chart (including review of chart, obtaining history, exam, reviewing outside data, placing orders, documenting exam and treatment plan, and counseling patient) on [DATE].
[2024-07-27 10:13] VITALS: BP 105/79; PULSE 63; RESP 13; TEMP 36.5; O2SAT 95
--- NOTE | 2024-07-27 10:16 | PM.OP.COLON ---
Operative Date/Time/Diagnoses Date of procedure: 07/27/24 Time of procedure: 10:16 Pre-op diagnosis: Colon cancer screening Post-op diagnosis: same Procedure & Clinicians Study performed: Colonoscopy Same procedure as scheduled: Yes Surgeon: Espinoza Joel Procedure Notes Procedure in detail: Surgeon: Espinoza Joel MD Anesthesia: Taryn Ashford CRNA Procedure: The patient was brought to the endoscopy suite, placed in left lateral decubitus position. The patient was connected to monitoring devices. A time-out was performed. Sedation was administered. Once the patient was adequately sedated, a digital rectal exam was performed and was normal. The scope was then inserted and advanced to the cecum where the appendiceal orifice was identified and photographed. The scope was then slowly withdrawn over greater than 6 minutes. The mucosa was thoroughly inspected. No polyps or other abnormalities were identified. The scope was retroflexed in the rectum. The scope was straightened and removed. The patient was awakened and brought to recovery. Scope withdrawal time: 7 minutes Sedation time: 15 minutes EBL: 0 Findings: Normal colon Post-procedure Recommendations: Colonoscopy in 10 years Disposition: PACU
[2024-07-27 10:18] VITALS: BP 113/63; PULSE 60; RESP 10; O2SAT 97
[2024-07-27 10:23] VITALS: BP 125/71; PULSE 56; RESP 12; O2SAT 97
[2024-07-27 10:28] VITALS: BP 120/60; PULSE 52; RESP 10; O2SAT 95
[2024-07-27 10:35] VITALS: BP 136/77; PULSE 54; RESP 15; TEMP 36.6; O2SAT 97
== END 2024-07-27 10:52 | disposition home or self-care (01) ==
PROVIDERS: PCP Family Medicine; Referring Provider Surgery; Visit Provider Surgery
PROC: 0DJD8ZZ Inspection of Lower Intestinal Tract, Via Natural or Artificial Opening Endoscopic (ICD-10-PCS; CPT 45378; principal; 2024-07-27 10:00)
DX: Z12.11 Encounter for screening for malignant neoplasm of colon (principal)
CPT/HCPCS: 45378; J2704

== ENCOUNTER 2024-08-08 12:05 | Day surgery (SDC) | payer OTHER, MEDICAID, SELFPAY ==
[2024-08-07 08:18] VITALS: BMI 46.8
[2024-08-08 12:43] VITALS: BP 159/89; PULSE 58; RESP 16; TEMP 36.2; O2SAT 97; BMI 46.8
[2024-08-08] MEDS: LACTATED RINGERS 1,000 ML 42 ML IV (13:15)
--- NOTE | 2024-08-08 14:20 | PM.PREOP ---
Pre-operative Note Interval Note History & Physical reviewed/Exam performed by Physician: Yes Changes to H&P: No
--- NOTE | 2024-08-08 14:20 | PM.OP.1 ---
Operative Date/Time/Diagnoses Date of procedure: 08/08/24 Time of procedure: 15:00 Pre-op diagnosis: Right carpal tunnel syndrome, right middle ring and small finger trigger finger Post-op diagnosis: same Procedure & Clinicians Procedure: Right carpal tunnel release, right middle finger trigger finger release, right ring finger trigger finger release, right small finger trigger finger release Same procedure as scheduled: Yes Indications: She Is a 54-year-old female with a history of ongoing numbness into the thumb index and middle finger. She also notes substantial triggering of the middle ring and small finger. She has a positive EMG and has failed extensive conservative treatment. She would like to proceed with a right carpal tunnel release and trigger finger releases. The procedure options risks benefits and complications were discussed in detail. She has multiple medical problems. She has stopped her blood thinners preoperatively and has bridged with Lovenox. Options risks benefits and complications discussed in detail. We are going to proceed with carpal tunnel release and trigger finger releases. Surgeon: Liana Heart Click Yes if Unassisted: Yes Anesthesia Type: General Operative Notes Findings: Moderate compression of the median nerve, evidence of some scuffing and inflammation along the flexor tendon sheath, no other abnormalities in the flexor tendon sheath adequate release Closure Type: primary Specimen(s): none sent Estimated Blood Loss (mL): 20 Blood products transfused: none Tourniquet time (min): 47 Procedure in detail: Patient was brought to the operating room. She underwent induction of a general anesthesia. Her right upper extremity was prepped draped standard sterile fashion. Time-out was performed. IV antibiotics were given. High arm tourniquet was elevated to 250 mmHg for 47 minutes. An incision was made along the base of the carpal canal. Dissection was carried out through skin and subcutaneous tissues. I extended the incision some across the carpal canal in order to optimize visualization of the median nerve. Dissection was carried out down to transverse carpal ligament. Transverse carpal ligament was released under direct visualization. There was excellent visualization of the median nerve. It was carefully protected with a deep hemostat. Was moderate compression of the median nerve. There were no other abnormalities in the carpal canal. There was some mild tenosynovitis. The motor branch distally was identified and noted to be intact without additional compression. Attention was then directed to the trigger fingers. Was made at the base of the A1 keysha of the small finger dissection was carried out through skin and subcutaneous tissues. Skin retractors were used. Dissection was carried out down to the flexor tendon sheath difficulty. The A1 keysha was released without difficulty. There was some mild to moderate tenosynovitis. Tendons were noted to be intact. I carefully checked that the release was complete and ran the tendons to make sure that there was smooth gliding. Attention was then directed to the ring finger incision was made transversely dissection was carried out through skin and subcutaneous tissues. Skin hook retractors were used. The tendon was carefully identified and the A1 keysha was identified. Keysha was released under direct visualization. There was some mild tenosynovitis. Patient's finger was placed through range of motion. There was no residual triggering. The quality of the really release was carefully checked. Attention was then directed to the middle finger and an identical procedure was performed on the middle finger. All the wounds were irrigated with small amount of normal saline and meticulously injected with Marcaine without epinephrine. The wounds were closed with combination of interrupted 5 0 nylon and 4-0 nylon. The wounds were dressed sterilely. The patient was placed in a sterile dressing and a plaster splint was used. She tolerated the procedure well and was transferred to recovery room in satisfactory condition. Complications: none Post-operative Condition: stable Disposition: same day surgery Plan for aftercare: Okay to begin immediate range of motion for the fingers. Use a splint for about 10-14 days. Okay to transition to a removable splint if she has one. No heavy lifting.
--- NOTE | 2024-08-08 14:43 | P.HP_ITS ---
History of Present Illness History of Present Illness Date Patient Seen: 08/08/24 Time Patient Seen: 14:43 Chief complaint: R carpal tunnel surgery Narrative: This is a 54-year-old female who notes ongoing constant right hand numbness and tingling she also has triggering in the middle ring and small finger. She is failed extensive conservative treatment. She would like to proceed with carpal tunnel release and trigger finger release. [facility] Medical History Traumatic ecchymosis of abdominal wall Chronic pain after traumatic injury Bilateral hand swelling Bilateral hand pain Elevated fasting glucose Chronic right shoulder pain Subchondral bone cyst Limited mobility Left arm weakness Left anterior shoulder pain Chronic left shoulder pain Therapeutic opioid induced constipation Acute pain of left knee Mobility impaired Anticoagulation monitoring, INR range 2-3 Skin abrasion Shingles Acute low back pain due to trauma Acute neck pain Weight loss counseling, encounter for Cranial somatic dysfunction Cervical somatic dysfunction Chronic neck pain Neck stiffness Chronic tension-type headache, intractable Cervical cancer screening Insomnia due to medical condition Depression Sacral region somatic dysfunction Pelvic somatic dysfunction Lumbar region somatic dysfunction Thoracic region somatic dysfunction BMI 45.0-49.9, adult Chronic pain of both knees Ganglion cyst of volar aspect of left wrist Warfarin anticoagulation HTN (hypertension) Inguinal hernia recurrent unilateral Postmenopausal bleeding Nocturia more than twice per night History of colon polyps Back pain with history of spinal surgery Surgical History H/O knee surgery H/O hernia repair Hx of section Family History Father Hypertension Mother Diabetes mellitus Congestive heart failure Stroke Hypertension Social History Smoking Status: Current every day smoker substance use type: marijuana Meds Home Medications and Allergies Home Medications Medication Instructions Recorded Confirmed Type Disabled Parking Permit #1 ea 06/10/22 07/12/24 Rx alprazolam 1 mg tablet 1 mg PO .COMPLEX PRN anxiety #2 12/10/22 07/12/24 Rx tabs fluticasone propionate 50 1 spray intranasal DAILY #16 grams 11/04/23 07/12/24 Rx mcg/actuation nasal spray,suspension warfarin 3 mg tablet See Rx Instructions PO .COMPLEX 11/25/23 08/07/24 Rx #420 tabs varenicline 0.5 mg (11)-1 mg (42) See Rx Instructions PO PER PKG DIR 01/04/24 07/12/24 Rx tablets in a dose pack (Chantix #53 ea Starting Month Box) sertraline 100 mg tablet 100 mg PO DAILY #90 tabs 02/15/24 08/08/24 Rx metoprolol succinate 100 mg See Rx Instructions .Route 02/17/24 08/08/24 Rx tablet,extended release 24 hr .COMPLEX #180 tabs psyllium husk (with sugar) 3.4 2 tsp PO ONCE #1,368 grams 04/20/24 07/12/24 Rx gram/12 gram oral powder (Metamucil (with sugar)) furosemide 80 mg tablet 80 mg PO DAILY #90 tabs 05/16/24 07/12/24 Rx duloxetine 60 mg capsule,delayed See Rx Instructions .Route 05/23/24 08/08/24 Rx release .COMPLEX #180 caps nystatin 100,000 unit/gram topical 1 applic topical BID #30 grams 06/09/24 07/12/24 Rx cream peg 3350-electrolytes 236 240 ml PO Q10M #4,000 mL 06/20/24 07/12/24 Rx gram-22.74 gram-6.74 gram-5.86 gram solution (Golytely) losartan 50 mg tablet 50 mg PO BID #180 tabs 06/27/24 08/08/24 Rx lidocaine 5 % topical patch 1 patch topical DAILY #30 caps 07/20/24 Rx tramadol 50 mg tablet See Rx Instructions .Route 07/20/24 Rx .COMPLEX #60 tabs enoxaparin 120 mg/0.8 mL 120 mg (0.8 mL) SUBCUT Q12H #8 mL 07/21/24 08/08/24 Rx subcutaneous syringe (Lovenox) trazodone 150 mg tablet 150 mg PO ONCE PM PRN for insomnia 07/28/24 08/08/24 Rx #90 tabs hydrocodone 10 mg-acetaminophen 1 tab PO Q4-6H PRN pain #180 tabs 07/31/24 08/08/24 Rx 325 mg tablet Allergies Allergy/AdvReac Type Severity Reaction Status Date / Time gabapentin [From NEURONTIN] Allergy Severe resp Verified 07/27/24 09:00 distress meperidine [From DEMEROL] Allergy Severe resp Verified 07/27/24 09:00 distress morphine [MORPHINE] Allergy Severe resp Verified 07/27/24 09:00 distress adhesive [ADHESIVE] Allergy Intermediate rash Verified 07/27/24 09:00 lisinopril Allergy Intermediate Rash Verified 07/27/24 09:00 rivaroxaban [From XARELTO] Allergy Unknown arthritis, Verified 07/27/24 09:00 bleeding in urine Review of Systems Review of Systems Narrative: Ongoing numbness and tingling. 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 The procedure options risks benefits and complications were discussed in detail. She is having ongoing significant pain and symptoms. She would like to proceed with operative intervention for carpal tunnel and trigger fingers. Options risks benefits and complications were discussed in detail. Time-Based Coding :: [TOTAL MINUTES] spent with patient and on the chart (including review of chart, obtaining history, exam, reviewing outside data, placing orders, documenting exam and treatment plan, and counseling patient) on [DATE].
--- NOTE | 2024-08-08 14:54 | SUR.OPER ---
Supine on padded [place] table with bilateral legs secured in padded positioning boots and suspended in positioning spars, operative leg in traction per surgeon. Head on one pillow. Arms secured on padded armboard <90 degrees abduction. Padded perineal post in place per surgeon.
[2024-08-08] MEDS: CEFAZOLIN 2 GM/100 ML PREMIX 100 ML IV (15:08)
[2024-08-08] MEDS: CEFAZOLIN VIAL 3 GM in SODIUM CHLORIDE 0.9% 100 ML IV (15:08)
--- NOTE | 2024-08-08 15:21 | SUR.OPER ---
Supine on padded OR bed, head on pillow, left arm secured on padded arm board, right arm draped free on black arm table at <90 degrees abduction, legs uncrossed, safety belt at thigh, tape over blanket over lower legs.
[2024-08-08] MEDS: BUPIVACAINE 0.5% (PF) 30 ML VIAL INJ (15:36)
--- NOTE | 2024-08-08 16:13 | SUR.OPER ---
Supine on padded OR bed, head on pillow,left arms secured on padded arm board at <90 degrees abduction,right arm draped free on black arm table legs uncrossed, safety belt at thigh, tape over blanket over lower legs.
[2024-08-08 16:23] VITALS: BP 150/69; PULSE 72; RESP 13; TEMP 36.1; O2SAT 95
[2024-08-08 16:27] VITALS: BP 134/59; PULSE 69; RESP 10; O2SAT 95
[2024-08-08 16:32] VITALS: BP 139/74; PULSE 69; RESP 14; O2SAT 95
[2024-08-08] MEDS: ACETAMINOPHEN 325 MG TABLET 975 MG PO (16:35)
[2024-08-08] MEDS: OXYCODONE IR 5 MG TABLET PO (16:36)
[2024-08-08 16:37] VITALS: BP 149/74; PULSE 68; RESP 12; O2SAT 95
[2024-08-08 16:43] VITALS: BP 149/82; PULSE 66; RESP 10; TEMP 36.6; O2SAT 96
== END 2024-08-08 17:22 | disposition home or self-care (01) ==
PROVIDERS: PCP Family Medicine; Referring Provider Family Medicine; Visit Provider Orthopaedic Surgery
PROC: (CPT 64721; principal; 2024-08-08 14:15)
DX: G56.01 Carpal tunnel syndrome, right upper limb (principal); M65.331 Trigger finger, right middle finger; M65.341 Trigger finger, right ring finger; M65.351 Trigger finger, right little finger; M65.941 Unspecified synovitis and tenosynovitis, right hand
CPT/HCPCS: 64721; 26055 ×3; J0330; J0690; J1100; J1885; J2405; J2704; J3010

== ENCOUNTER 2024-12-07 08:42 | Day surgery (SDC) | payer OTHER, SELFPAY ==
[2024-11-24 10:59] VITALS: BMI 47.1
[2024-11-27 10:45] VITALS: BMI 47.1
[2024-12-07] VITALS (7 sets, daily range): BP systolic 145–164; BP diastolic 72–97; PULSE 49–59; RESP 12–18; TEMP 36.2–36.7; O2SAT 96–98; BMI 43.6
[2024-12-07] MEDS: LACTATED RINGERS 1,000 ML 42 ML IV (09:38)
--- NOTE | 2024-12-07 10:27 | PM.PREOP ---
Pre-operative Note Interval Note History & Physical reviewed/Exam performed by Physician: Yes Changes to H&P: No
--- NOTE | 2024-12-07 10:28 | P.HP_ITS ---
History of Present Illness History of Present Illness Date Patient Seen: 12/07/24 Time Patient Seen: 10:28 Chief complaint: Trigger release L small & ring fingers Narrative: This is a 54-year-old female with ongoing triggering of the left small ring and middle finger. He was having significant difficulty with her left hand. She has a history of a recent right carpal tunnel release and did well with that. She was left-hand dominant. He notes significant stiffness into the left middle and small finger and intermittent triggering. [facility] Medical History Acute right-sided thoracic back pain Hx of idiopathic thrombocytopenic purpura Obstructive sleep apnea Witnessed apneic spells Loud snoring Chronically on opiate therapy Traumatic ecchymosis of abdominal wall Chronic pain after traumatic injury Bilateral hand swelling Bilateral hand pain Elevated fasting glucose Chronic right shoulder pain Subchondral bone cyst Limited mobility Left arm weakness Left anterior shoulder pain Chronic left shoulder pain Therapeutic opioid induced constipation Acute pain of left knee Mobility impaired Anticoagulation monitoring, INR range 2-3 Skin abrasion Shingles Acute low back pain due to trauma Acute neck pain Weight loss counseling, encounter for Cranial somatic dysfunction Cervical somatic dysfunction Chronic neck pain Neck stiffness Chronic tension-type headache, intractable Cervical cancer screening Insomnia due to medical condition Depression Sacral region somatic dysfunction Pelvic somatic dysfunction Lumbar region somatic dysfunction Thoracic region somatic dysfunction BMI 45.0-49.9, adult Chronic pain of both knees Ganglion cyst of volar aspect of left wrist Warfarin anticoagulation HTN (hypertension) Inguinal hernia recurrent unilateral Postmenopausal bleeding Nocturia more than twice per night History of colon polyps Back pain with history of spinal surgery Surgical History S/P trigger finger release (08/08/24) History of carpal tunnel surgery of right wrist H/O knee surgery H/O hernia repair Hx of section (Unknown) Family History Father Hypertension Mother Diabetes mellitus Congestive heart failure Stroke Hypertension Social History household members: family Smoking Status: Current every day smoker substance use type: marijuana Meds Home Medications and Allergies Home Medications Medication Instructions Recorded Confirmed Type Disabled Parking Permit #1 ea 06/10/22 11/24/24 Rx alprazolam 1 mg tablet 1 mg PO .COMPLEX PRN anxiety #2 12/10/22 12/07/24 Rx tabs warfarin 3 mg tablet See Rx Instructions PO .COMPLEX 11/25/23 12/07/24 Rx #420 tabs sertraline 100 mg tablet 100 mg PO DAILY #90 tabs 02/15/24 12/07/24 Rx metoprolol succinate 100 mg See Rx Instructions .Route 02/17/24 12/07/24 Rx tablet,extended release 24 hr .COMPLEX #180 tabs psyllium husk (with sugar) 3.4 2 tsp PO ONCE #1,368 grams 04/20/24 12/07/24 Rx gram/12 gram oral powder (Metamucil (with sugar)) nystatin 100,000 unit/gram topical 1 applic topical BID #30 grams 06/09/24 12/07/24 Rx cream lidocaine 5 % topical patch 1 patch topical DAILY #30 caps 07/20/24 12/07/24 Rx trazodone 150 mg tablet 150 mg PO ONCE PM PRN for insomnia 07/28/24 12/07/24 Rx #90 tabs losartan 50 mg tablet 50 mg PO BID #180 tabs 09/29/24 12/07/24 Rx phentermine 30 mg capsule 30 mg PO DAILY Weight loss. 11/03/24 12/07/24 History duloxetine 60 mg capsule,delayed 60 mg PO BID #180 caps 11/14/24 12/07/24 Rx release tramadol 50 mg tablet See Rx Instructions .Route 11/20/24 12/07/24 Rx .COMPLEX #60 tabs enoxaparin 120 mg/0.8 mL 120 mg (0.8 mL) SUBCUT Q12H #8 mL 11/24/24 12/07/24 Rx subcutaneous syringe (Lovenox) furosemide 80 mg tablet 80 mg PO DAILY 11/24/24 12/07/24 History fluticasone propionate 50 1 spray intranasal DAILY #16 grams 11/29/24 12/07/24 Rx mcg/actuation nasal spray,suspension hydrocodone 10 mg-acetaminophen 1 tab PO Q4-6H PRN pain #180 tabs 11/29/24 12/07/24 Rx 325 mg tablet Allergies Allergy/AdvReac Type Severity Reaction Status Date / Time gabapentin [From NEURONTIN] Allergy Severe resp Verified 12/07/24 09:32 distress meperidine [From DEMEROL] Allergy Severe resp Verified 12/07/24 09:32 distress morphine [MORPHINE] Allergy Severe resp Verified 12/07/24 09:32 distress adhesive [ADHESIVE] Allergy Intermediate rash Verified 12/07/24 09:32 lisinopril Allergy Intermediate Rash Verified 12/07/24 09:32 rivaroxaban [From XARELTO] Allergy Unknown arthritis, Verified 12/07/24 09:32 bleeding in urine Review of Systems Review of Systems Narrative: She is on phentermine for weight loss. She is stopped her medicines about 7 days ago. She takes warfarin normally and has been bridged with Lovenox. She notes that she is otherwise doing well. 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 Assessment & Plan Assessment and plan (1) Trigger finger of all digits of left hand: Status: Acute (2) Trigger finger, left little finger: Status: Acute (3) Trigger finger, left middle finger: Status: Acute (4) Trigger finger, left ring finger: Status: Acute Plan She has active triggering of the left little finger middle finger and ring finger. She was quite symptomatic. I recommended trigger finger releases. The procedure options risks benefits and complications were discussed in detail. She understands and agrees. Risk for tendon or nerve injury, infection, recurrent triggering or persistent pain was discussed in detail. Time-Based Coding :: [TOTAL MINUTES] spent with patient and on the chart (including review of chart, obtaining history, exam, reviewing outside data, placing orders, documenting exam and treatment plan, and counseling patient) on [DATE].
[2024-12-07] MEDS: CEFAZOLIN VIAL 3 GM in SODIUM CHLORIDE 0.9% 100 ML IV (10:47)
--- NOTE | 2024-12-07 11:07 | SUR.OPER ---
Supine on padded OR bed, head on pillow, RIGHT arm secured on padded arm board at <90 degrees abduction, legs uncrossed, safety belt at thigh, tape over blanket over lower legs. PILLOW UNDER KNEES, OPERATIVE ARM (LEFT) ON ARMBOARD, PREPPED INTO FIELD
[2024-12-07] MEDS: LIDOCAINE 1% 20 ML INJ (11:13)
[2024-12-07] MEDS: BUPIVACAINE 0.25% W/ EPI 30 ML VIAL 60 ML INJ (11:13)
--- NOTE | 2024-12-07 11:50 | PM.OP.1 ---
Operative Date/Time/Diagnoses Date of procedure: 12/07/24 Pre-op diagnosis: Left hand trigger finger small ring and middle Post-op diagnosis: same Procedure & Clinicians Procedure: Left hand trigger finger release small finger, ring finger, middle finger Same procedure as scheduled: Yes Indications: This is a 54-year-old female with persistent triggering of her left hand in the small finger ring finger trigger finger and middle finger triggering. She was brought to the operating room for trigger finger releases. She has a history prior tunnel release. She also has some chronic thumb pain. She is left-hand dominant. Surgeon: Liana Heart Click Yes if Unassisted: Yes Anesthesia Type: Sedation and Local Operative Notes Findings: Thickening of the A1 keysha of the middle and ring with severe thickening of the small finger. Trigger finger releases without significant difficulty. Closure Type: primary Specimen(s): none sent Blood products transfused: none Tourniquet time (min): 22 Procedure in detail: Patient was brought the operating room. She was sedated. She was given IV antibiotics. A time-out was performed. The patient's left upper extremity was prepped draped standard sterile fashion. Patient is seen and was carefully positioned. An incision was made on the palm at the base of the A1 keysha by the middle finger after using local to anesthetize the middle ring and small finger skin. Dissection was carried out through skin and subcutaneous tissues. Skins were hooks were used. The keysha was carefully visualized and released without difficulty. Patient was placed through range of motion. There was no residual triggering. Attention was directed to the ring finger. An identical procedure was performed on the ring finger releasing the A1 keysha and visualizing the flexor tendon sheath. Small finger an incision was made dissection was carried out through skin and subcutaneous tissues. Tendon sheath was visualized. Incision was made. Adequate release was achieved. There was some moderate thickening tendon. Partial tenosynovectomy was performed. The wounds were meticulously injected with Marcaine. The wound was closed with nylon. And the wound was dressed sterilely. She tolerated the procedure well she was transferred to recovery room in satisfactory condition. Complications none. Complications: none Post-operative Condition: stable Disposition: same day surgery Plan for aftercare: Work on range of motion for the fingers. Okay to do hand therapy. Pushed to full range of motion and progressive tendon gliding. Start Coumadin today. Okay to do 1 dose of Lovenox tomorrow.
[2024-12-07] MEDS: OXYCODONE/ACETAMINOPHEN 5/325 TABLET 1 TAB PO (12:02)
== END 2024-12-07 12:55 | disposition home or self-care (01) ==
PROVIDERS: PCP Family Medicine; Referring Provider Orthopaedic Surgery; Visit Provider Orthopaedic Surgery
PROC: (CPT 26055; principal; 2024-12-07 10:45)
DX: M65.352 Trigger finger, left little finger (principal); M65.342 Trigger finger, left ring finger; M65.332 Trigger finger, left middle finger; F17.210 Nicotine dependence, cigarettes, uncomplicated
CPT/HCPCS: 26055 ×3; J0690; J2250; J2704; J3010

== ENCOUNTER 2025-04-12 17:28 | Emergency (ER) | payer OTHER, SELFPAY ==
[2025-04-12 17:34] VITALS: BP 230/110; PULSE 66; RESP 16; TEMP 37.4; O2SAT 99; BMI 38.0
[2025-04-12 18:08] LABS: Culture Indicated Urine Cult Not Indicated
--- NOTE | 2025-04-12 18:22 | ED_ITS ---
<Statement entered by Andrew Gómez, DO - 04/12/25 18:32> Co-sign statement: I was available for consultation during this patient's emergency department visit. This chart is being signed by myself for administrative purposes only. I do not have direct contact with this patient during this visit. They were seen independently by the APC. HPI - Back Pain/Injury General Chief Complaint: Back Pain/Injury Stated Complaint: Back pain due to fall on the of last month Time Seen by Provider: 04/12/25 17:44 Source: patient History of Present Illness HPI Narrative: This is a 54-year-old female presenting to the emergency department due to right-sided lower back pain. States that she was a chronic history of back pain involving spine surgery last in 2019. She initially fell and went to [facility] where she had a CT scan which showed no abnormalities roughly 2 weeks ago. A dog that jumped on her lap yesterday which caused a flare-up in the pain. She was denying any urinary bowel incontinence. No saddle paresthesia weakness in the lower extremities. Patient is currently prescribed tramadol, hydrocodone, tizanidine, lidocaine patch she was. Gabapentin she was allergic to. States she can not take NSAIDs. Has been taking 2000 of Tylenol daily. Related Data Home Medications ?Medication ?Instructions ?Recorded ?Confirmed furosemide 80 mg tablet 80 mg PO DAILY 11/24/2412/26 moringa PO 02/22/25 04/05/25 tizanidine 4 mg tablet 4 mg PO 3XD 04/03/25 5 Previous Rx's ?Medication ?Instructions ?Recorded Disabled Parking Permit #1 ea 06/10/22 alprazolam 1 mg tablet 1 mg PO .COMPLEX PRN anxiety #2 12/10/22 tabs psyllium husk (with sugar) 3.4 2 tsp PO ONCE #1,368 gr ams 04/20/24 gram/12 gram oral powder (Metamucil (with sugar)) lidocaine 5 % topical patch 1 patch topical DAILY #30 caps 07/20/24 enoxaparin 120 mg/0.8 mL 120 mg (0.8 mL) SUBCUT Q12H #8 mL 11/24/24 subcutaneous syringe (Lovenox) fluticasone propionate 50 1 spray intranasal DAILY #16 grams 11/29/24 mcg/actuation nasal spray,suspension losartan 50 mg tablet 50 mg PO BID #180 tabs 01/02 metoprolol succinate 100 mg 100 mg PO BID #180 tabs tablet,extended release 24 hr sertraline 100 mg tablet 100 mg PO DAILY #90 tabs nystatin 100,000 unit/gram topical 1 applic topical BI D #30 grams 02/06/25 cream duloxetine 60 mg capsule,delayed 60 mg PO BID #180 cap s 02/13/25 release warfarin 3 mg tablet See Rx Instructions PO .COMP DEAN 03/13/25 #420 tabs tramadol 50 mg tablet See Rx Instructions .Route 0 03/21/25 .COMPLEX #60 tabs hydrocodone 10 mg-acetaminophen 1 tab PO Q4-6H PRN yessenia n #180 tabs 03/27/25 325 mg tablet trazodone 150 mg tablet 150 mg PO ONCE PM PRN for in somnia 03/27/25 #90 tabs bisacodyl 10 mg/30 mL enema (Fleet 5 mg (15 mL) VT BRUCE LY PRN 04/03/25 Bisacodyl) constipation #74 mL phentermine 30 mg capsule See Rx Instructions .Route 0 04/05/25 .COMPLEX #90 caps prednisone 10 mg tablet 10 mg PO DIRECTED #30 tab s 04/05/25 methocarbamol 500 mg tablet 1,000 mg (2 x 500 mg) PO Q 6H 72 04/12/25 hours #24 tabs Allergies Allergy/AdvReac Type Severity Reaction Status Date / Time gabapentin (From NEURONTIN) Allergy Severe resp Verified 04/05/25 11:45 distress meperidine (From DEMEROL) Allergy Severe resp Verified 04/05/25 11:45 distress morphine (MORPHINE) Allergy Severe resp Verified 04/05/25 11:45 distress adhesive (ADHESIVE) Allergy Intermediate rash Verified 04/05/25 11:45 lisinopril Allergy Intermediate Rash Verified 04/05/25 11:45 rivaroxaban (From XARELTO) Allergy Unknown arthritis, Verified 04/05/25 11:45 bleeding in urine Review of Systems Review of Systems Narrative: GENERAL: Denies chills, fatigue, malaise, fever, sweats. HEENT: Denies sinus pain, ear pain, sore throat, difficulty swallowing, dizziness. RESPIRATORY: Denies dyspnea, cough, wheezing, hemoptysis, sputum. CARDIOVASCULAR: Denies chest pain, palpitations, orthopnea, edema, GASTROINTESTINAL: Denies nausea, vomiting, abdominal pain, diarrhea, constipation, melena. : Denies dysuria, frequency, incontinence, hematuria, urinary retention. MUSCULOSKELETAL: Right-sided lower back pain SKIN: Denies rash, skin lesions, or other NEUROLOGIC: Denies weakness, headache, numbness, change in speech, confusion, seizures, incoordination. PSYCHIATRIC: No concerning psychosocial issues. 12 point review of systems is negative except for those stated above Patient History Medical History (Updated 04/12/25 @ 18:29 by Hunter Brown PA-C) Sebaceous cyst Acute right-sided thoracic back pain Hx of idiopathic thrombocytopenic purpura Obstructive sleep apnea Witnessed apneic spells Loud snoring Chronically on opiate therapy Traumatic ecchymosis of abdominal wall Chronic pain after traumatic injury Bilateral hand swelling Bilateral hand pain Elevated fasting glucose Chronic right shoulder pain Subchondral bone cyst Limited mobility Left arm weakness Left anterior shoulder pain Chronic left shoulder pain Therapeutic opioid induced constipation Acute pain of left knee Mobility impaired Anticoagulation monitoring, INR range 2-3 Skin abrasion Shingles Acute low back pain due to trauma Acute neck pain Weight loss counseling, encounter for Cranial somatic dysfunction Cervical somatic dysfunction Chronic neck pain Neck stiffness Chronic tension-type headache, intractable Cervical cancer screening Insomnia due to medical condition Depression Sacral region somatic dysfunction Pelvic somatic dysfunction Lumbar region somatic dysfunction Thoracic region somatic dysfunction BMI 45.0-49.9, adult Chronic pain of both knees Ganglion cyst of volar aspect of left wrist Warfarin anticoagulation HTN (hypertension) Inguinal hernia recurrent unilateral Postmenopausal bleeding Nocturia more than twice per night History of colon polyps Back pain with history of spinal surgery Surgical History S/P trigger finger release (08/08/24) History of carpal tunnel surgery of right wrist H/O knee surgery H/O hernia repair Hx of section (Unknown) Family History Father Hypertension Mother Diabetes mellitus Congestive heart failure Stroke Hypertension Social History household members: family substance use type: marijuana tobacco type: cigarettes alcohol intake frequency: holidays/special occasions only Exam Narrative Exam Narrative: GENERAL: Well-developed patient, in mild distress. HEAD: Atraumatic. Normocephalic. EYES: Pupils equal round and reactive. Extraocular motions intact. No scleral icterus. No injection or drainage. ENT: Nose without bleeding, purulent drainage. Throat without erythema, tonsillar hypertrophy or exudate. Airway patent. NECK: Trachea midline. Non tender EXTREMITIES: No edema or joint tenderness. NEURO: AOx3. SKIN: No rash or erythema of visible areas Back: Tenderness palpation to the right lumbar spine paraspinals Initial Vital Signs Initial Vital Signs: Vital Signs Temperature 99.3 F 04/12/25 17:34 Pulse Rate 66 04/12/25 17:34 Respiratory Rate 16 04/12/25 17:34 Blood Pressure 230/110 H 04/12/25 17:34 Pulse Oximetry 99 04/12/25 17:34 Oxygen Delivery Method Room Air 04/12/25 17:34 Course Orders Ordered: ED Orders 04/12/25 17:40 Urine Microscopic Stat Vital Signs Vital signs: Vital Signs - 8 hr 04/12/25 17:34 Temperature 99.3 F Pulse Rate 66 Respiratory Rate 16 Blood Pressure 230/110 H Pulse Oximetry 99 Oxygen Delivery Method Room Air MDM - Back Pain/Injury Lab Data Labs: Lab Results 04/12/25 Range/Units 17:40 Urine RBC 5-10/hpf H (0-5/HPF) Urine WBC None seen (0-5/HPF) Ur Squamous Epith Cells 0-1 /hpf (0-5/HPF) Urine Bacteria None seen (None) Ur Culture Indicated? Cult not indicated Vol Urine Centrifuged 10ml (spun) Urine Dip Bedside Urine Glucose Negative Bedside Urine Bilirubin - Negative Bedside Urine Ketone - Negative Urine Specific [place] 1.015 Bedside Urine Occult Blood + Bedside Urine pH 6.0 Bedside Urine Protein - Negative Bedside Urine Urobilinogen - Negative Bedside Urine Nitrite - Negative Bedside Urine Leukocytes - Negative Esterase MDM Narrative Medical decision making narrative: ED course: This is a 54-year-old female with a history of chronic lower back pain presenting for suspected lumbosacral strain after dog jumped on her lap. Patient has already been taking a multitude of pain medications but we will advise to take 1000 mg of Tylenol t.i.d. via the b.i.d.. We will also attempted different muscle relaxer in methocarbamol. Patient requesting more opiates but advised she should follow up with the primary care provider regarding this. Advised she follow up with the spine surgery clinic in [place] for re-evaluation and further management. No red flag symptoms such as saddle paresthesias, urinary or bowel incontinence, lower extremity weakness. She was noted to have elevated blood pressure and we will advise her to take her nighttime home hypertension medications. She was also found to have incidental hematuria and advised her to follow up with the primary care provider. No recent symptoms otherwise. CC: Right-sided lower back pain Complicating co-morbidities: History of chronic lower back pain status post surgery Data collected from: Previous notes Medical records reviewed: Patient was last seen in this emergency department roughly a year ago. History of chronic back pain post spinal fusion, hypothyroidism, prior DVT, prior stroke, anxiety, depression, PTSD. Patient was given her nighttime dose of metoprolol 100 mg as well as losartan 50 mg. No evidence of end-organ damage. Differential considered, but not limited to: Lumbar strain, spinal cord injury Exam documented above, pertinent findings include: Tenderness to palpation to the right lumbar paraspinals Lab Test results independently reviewed as above. Pertinent findings: As mentioned above Imaging studies independently reviewed: None Scores Used: None MIPS Elements: None Consultations: None Treatments: None Re-evaluations: None Discussion: Discussed plan with the patient was comfortable with the plan Diagnosis: Lumbosacral strain Disposition: see below, along with detailed discharge instructions that have been reviewed with patient as well as indications for ED re-evaluation and additional outpatient follow up Discharge Plan Departure Patient Disposition: Home Clinical Impression: Lumbosacral strain Qualifiers: Encounter type: initial encounter Qualified Code(s): S39.012A - Strain of muscle, fascia and tendon of lower back, initial encounter Activity Restrictions/Additional Instructions: Thank you for coming to the [facility] Emergency Department today. I suspect you have re-strained a somewhat chronic lower back pain area. I a dvised he follow up with the spine surgery clinic in [place] for long-term management. You may take a 1000 mg of Tylenol every 8 hours which has increased. I also prescribed different muscle relaxants. Please follow up your blood pressure was also noted to be elevated your blood pressure was also noted to be elevated please follow up with the primary care provider. It was also noted to have bloody urine. Please follow up with the primary care provider regarding this as well. Please return to the emergency department if you develop any urinary bowel incontinence, numbness between her legs, or any other concerning signs or symptoms. I hope you feel better soon. Please follow up with your primary care provider within a week if your symptoms continue. If you do not have a primary care provider please contact the [facility] Resource line at [phone]. They will ask some questions about your medical history and help you get set up with a provider in the community. Prescriptions: New methocarbamol 500 mg tablet 1,000 mg PO Q6H 3 Days Qty: 24 0RF No Action Metamucil (with sugar) 3.4 gram/12 gram powder 2 tsp PO ONCE Qty: 1368 12RF lidocaine 5 % adhesive patch,medicated 1 patch topical DAILY Qty: 30 4RF fluticasone propionate 50 mcg/actuation spray,suspension 1 spray intranasal DAILY Qty: 16 0RF losartan 50 mg tablet 50 mg PO BID Qty: 180 0RF sertraline 100 mg tablet 100 mg PO DAILY Qty: 90 0RF metoprolol succinate 100 mg tablet extended release 24 hr 100 mg PO BID Qty: 180 0RF nystatin 100,000 unit/gram cream 1 applic topical BID Qty: 30 2RF duloxetine 60 mg capsule,delayed release(DR/EC) 60 mg PO BID Qty: 180 0RF warfarin 3 mg tablet See Rx Instructions PO .COMPLEX Qty: 420 0RF Protocol: Dose Management Condition: Wednesday (Week One) Dose/Route: 6 mg Instruction: 2 x 3 mg tablets Condition: Wednesday Dose/Route: 9 mg Instruction: 3 x 3 mg tablets Condition: Wednesday Dose/Route: 6 mg Instruction: 2 x 3 mg tablets Condition: Wednesday Dose/Route: 9 mg Instruction: 3 x 3 mg tablets Condition: Dose/Route: 6 mg Instruction: 2 x 3 mg tablets Condition: Wednesday Dose/Route: 9 mg Instruction: 3 x 3 mg tablets Condition: Wednesday Dose/Route: 6 mg Instruction: 2 x 3 mg tablets Condition: Wednesday (Week Two) Dose/Route: 6 mg Instruction: 2 x 3 mg tablets Condition: Wednesday Dose/Route: 9 mg Instruction: 3 x 3 mg tablets Condition: Wednesday Dose/Route: 6 mg Instruction: 2 x 3 mg tablets Condition: Wednesday Dose/Route: 9 mg Instruction: 3 x 3 mg tablets Condition: Dose/Route: 6 mg Instruction: 2 x 3 mg tablets Condition: Wednesday Dose/Route: 9 mg Instruction: 3 x 3 mg tablets Condition: Wednesday Dose/Route: 6 mg Instruction: 2 x 3 mg tablets Protocol Text: Adjustment Start Date: 04/05/25 INR Value: 2.0 INR Date: 04/05/25 Recheck Date: 04/19/25 Rx Instructions: Take 3 tablets by mouth ON WEDNESDAY, WEDNESDAY AND WEDNESDAY, AND TAKE 2 TABLETS ALL OTHER DAYS tramadol 50 mg tablet See Rx Instructions .ROUTE .COMPLEX Qty: 60 5RF Rx Instructions: Take 1 tablet by mouth twice daily as needed for pain; hydrocodone-acetaminophen 10-325 mg tablet 1 tab PO Q4-6H PRN (Reason: pain) Qty: 180 0RF trazodone 150 mg tablet 150 mg PO ONCE PM PRN (Reason: for insomnia) Qty: 90 3RF (DME) Disabled Parking Permit See Rx Instructions .Route .MEDSUPPLY Qty: 1 0RF Rx Instructions: Disabled Parking Permit-Permanent furosemide 80 mg tablet 80 mg PO DAILY enoxaparin [Lovenox] 120 mg/0.8 mL syringe 120 mg SUBCUT Q12H Qty: 8 0RF moringa PO tizanidine 4 mg tablet 4 mg PO 3XD Fleet Bisacodyl 10 mg/30 mL enema 5 mg VT DAILY PRN (Reason: constipation) Qty: 74 0RF Rx Instructions: Use 15mL once. If no relief in 24-48 hours repeat once. alprazolam 1 mg tablet 1 mg PO .COMPLEX PRN (Reason: anxiety) Qty: 2 0RF Rx Instructions: 1 mg orally for claustrophia PRN; prednisone 10 mg tablet 10 mg PO DIRECTED Qty: 30 0RF Rx Instructions: 40mg x3 days, 30mg x3 days, 20mg x3 days, 10mg x3 days phentermine 30 mg capsule See Rx Instructions .ROUTE .COMPLEX Qty: 90 1RF Rx Instructions: Take 1 capsule by mouth once daily 2 hours after breakfast; Referrals: Juan Mabry DO [Primary Care Provider, Family Practice] Stand Alone Forms: Patient Portal/API
[2025-04-12 18:24] VITALS: BP 230/114
== END 2025-04-12 18:37 | disposition home or self-care (01) ==
PROVIDERS: Emergency Provider Physician Assistant Medical; PCP Family Medicine
DX: S39.012A Strain of muscle, fascia and tendon of lower back, initial encounter (principal); X58.XXXA Exposure to other specified factors, initial encounter
CPT/HCPCS: 81003; 81015; 99282